=== PATIENT | male | born 1955 | race Caucasian/White ===

== ENCOUNTER → 2018-09-28 | Outpatient (REF) ==
--- NOTE | 2018-09-28 11:33 | REP ---
Clinical: Pain and disability. Technique: AP, lateral, and coned-down views of the lumbosacral spine. Findings: Alignment and lordosis maintained. Advanced degenerative disc osteophyte complex at the L5-S1 level noted along with hypertrophic facet changes and possible chronic spondylolysis without spondylolisthesis. Moderate degenerative spondylosis noted throughout the remainder of the visualized lower thoracic and lumbar spine through the L4-5 level. A very subtle compression deformity involving superior endplate of T12 is suggested and of uncertain chronicity. Impression: 1. Advanced degenerative spondylosis at L5-S1. 2. Moderate multilevel degenerative changes noted throughout the remainder examination. 3. Very subtle compression deformity along superior endplate of T12 of uncertain chronicity. Electronically Signed by Cm Mota MD 09/28/2018 11:25 A
--- NOTE | 2018-09-28 11:35 | REP ---
Clinical: Pain and disability. Technique: AP, lateral, bilateral oblique views of the right knee. Findings: Evidence for prior replacement. Underlying degenerative changes including heterotopic bone formation as well as calcified loose bodies within the joint space, prepatellar soft tissue swelling and possible small effusion. No acute fracture dislocation. No prior examination available for comparison. Impression: Significant degenerative changes. No prior exams for comparison. Electronically Signed by Cm Mota MD 09/28/2018 11:26 A
== END ==
LOC: M SMT 11:04
PROVIDERS: ATTEND Internal Medicine
DX: Z00.00 Encounter for general adult medical examination without abnormal findings (principal)